=== PATIENT | female | born 1990 | race Caucasian/White ===

== ENCOUNTER 2017-03-18 17:55 | Emergency (ER) | payer MEDICAID ==
[~2017-03-18] VITALS: Ht 165.1 cm; Wt 60.1 kg
[2017-03-18 17:59] VITALS: BP 122/77
[2017-03-18] MEDS ORDERED: ACETAMINOPHEN 500 MG TABLET PO ONE (18:30)
[2017-03-18] MEDS ORDERED: ACETAMINOPHEN 500 MG TABLET ONE (18:31)
[2017-03-18] MEDS ORDERED: HYDROmorphone 1 MG/ML, 1ML ONE (18:56)
== END 2017-03-18 19:16 | disposition home or self-care (01) ==
LOC: ED 18:52
DX: O26.892 Other specified pregnancy related conditions, second trimester (principal); K04.7 Periapical abscess without sinus; K02.9 Dental caries, unspecified; Z3A.17 17 weeks gestation of pregnancy
CPT/HCPCS: 99283

== ENCOUNTER 2019-12-13 06:40 | Emergency (ER) | payer SELFPAY ==
[~2019-12-13] VITALS: Ht 165.1 cm; Wt 65.0 kg
--- NOTE | 2019-12-13 06:57 | NUR ---
Pt to room from lobby by wheelchair.
[2019-12-13] MEDS ORDERED: ONDANSETRON 2MG/ML, 2ML ONE (07:05)
[2019-12-13] MEDS ORDERED: KETOROLAC 30 MG/1 ML ONE (07:05)
[2019-12-13] MEDS ORDERED: ACETAMINOPHEN 500 MG TABLET ONE (07:05)
[2019-12-13] MEDS ORDERED: DIPHENHYDRAMINE 50 MG/ML, 1ML ONE (07:08)
[2019-12-13] MEDS ORDERED: ACETAMINOPHEN 500 MG TABLET PO ONE (07:30)
[2019-12-13] MEDS ORDERED: DIPHENHYDRAMINE 50 MG/ML, 1ML IVPush ONE (07:30)
[2019-12-13] MEDS ORDERED: SODIUM CHLORIDE FLUSH 10ML SYR IVF ONE (07:30)
[2019-12-13] MEDS ORDERED: KETOROLAC 30 MG/1 ML IVPush ONE (07:30)
[2019-12-13] MEDS ORDERED: SODIUM CHLORIDE 0.9% 1,000ML IVBOLUS ONE (07:30)
[2019-12-13] MEDS ORDERED: ONDANSETRON 2MG/ML, 2ML IVPush ONE (07:30)
[2019-12-13 07:45] LABS: BASOPHILS # (AUTO) 0.04 x10^3/uL (0-0.1); BASOPHILS % (AUTO) 0 % (0-1); EOSINOPHILS # (AUTO) 0.05 x10^3/uL (0-0.4); EOSINOPHILS % (AUTO) 1 % (1-7); LYMPHOCYTES # (AUTO) 0.96 x10^3/uL (1-3.4); LYMPHOCYTES % (AUTO) 9 % (22-44); MD NO; MEAN CORPUSCULAR HEMOGLOBIN 30.9 pg (27.0-34.8); MEAN CORPUSCULAR HGB CONC 33.9 g/dL (32.4-35.8); MEAN CORPUSCULAR VOLUME 91.3 fL (80-100); MEAN PLATELET VOLUME 8.9 fL (7.4-10.4); MONOCYTES # (AUTO) 0.81 x10^3/uL (0.2-0.8); MONOCYTES % (AUTO) 7 % (2-9); NEUTROPHILS # (AUTO) 9.35 x10^3/uL (1.8-6.8); NEUTROPHILS % (AUTO) 83 % (42-75); PLATELET COUNT 321 x10^3/uL (130-400); RED BLOOD COUNT 4.71 x10^6/uL (3.82-5.3); RED CELL DISTRIBUTION WIDTH 13.5 % (9.6-15.2)
[2019-12-13 07:54] LABS: ALBUMIN 3.6 g/dL (3.4-5.0); ANION GAP 10 mmol/L (5-15); CALCIUM 8.6 mg/dL (8.5-10.1); CHLORIDE 103 mmol/L (98-107); CREATININE 1.01 mg/dL (0.55-1.02)
[2019-12-13 07:57] LABS: RAPID INFLUENZA A Negative (Negative); RAPID INFLUENZA B Negative (Negative)
[2019-12-13] MEDS ORDERED: MORPHINE SULFATE 4 MG/ML, 1ML ONE (07:58)
[2019-12-13] MEDS ORDERED: MORPHINE SULFATE 4 MG/ML, 1ML IVPush PRN (08:00)
[2019-12-13 09:19] LABS: MICROSCOPIC AUTO
[2019-12-13 09:37] LABS: CULTURE INDICATED? YES
[2019-12-13] MEDS ORDERED: CEFTRIAXONE PMX 1GM/50ML 50 ML IV ONE (10:00)
[2019-12-13] MEDS ORDERED: CEFTRIAXONE PMX 1GM/50ML 50 ML ONE (10:14)
[2019-12-13 10:16] VITALS: BP 115/79
--- NOTE | 2019-12-13 10:53 | NUR ---
Patient and caregiver given discharge instructions and they have confirmed that they understand the instructions. Patient ambulatory with steady gait. Pt left with d/c paperwork, Rx, and all personal belongings. NADN. No needs expressed.
== END 2019-12-13 10:56 | disposition home or self-care (01) ==
LOC: ED 09:27
DX: N30.00 Acute cystitis without hematuria (principal); B34.9 Viral infection, unspecified; F17.210 Nicotine dependence, cigarettes, uncomplicated
CPT/HCPCS: 36415; 70450; 71046; 80048; 81001; 82040; 83605; 84145; 84703; 85025; 87040; 87077; 87086; 87400; 93005; 96365; 96375; 99285; J0696; J1200; J1885; J2270; J2405; J7030; 87186

== ENCOUNTER 2019-12-13 19:09 | Emergency (ER) | payer SELFPAY ==
[~2019-12-13] VITALS: Ht 165.1 cm; Wt 66.0 kg
[2019-12-13 19:33] VITALS: BP 122/85
--- NOTE | 2019-12-13 20:13 | NUR ---
PT. TO ROOM FROM LOBBY AT THIS TIME.
--- NOTE | 2019-12-13 20:14 | NUR ---
CORRECTION TO LAST NOTE. PT. NIL X 1 WHEN CALLED TO ROOM.
--- NOTE | 2019-12-13 20:26 | NUR ---
NIL X 2 WHEN CALLED FOR ROOM.
--- NOTE | 2019-12-13 20:39 | NUR ---
NIL X 3.
== END 2019-12-14 03:46 | disposition left against medical advice (07) ==
LOC: ED 20:45
DX: R51 Headache (principal)
CPT/HCPCS: 99281